=== PATIENT | female | born 1960 | race Caucasian/White ===

== ENCOUNTER 2024-04-08 05:18 | Inpatient (IN) | payer OTHER ==
[~2024-04-08] VITALS: Ht 157.5 cm; Wt 63.0 kg
[2024-04-08] VITALS (12 sets, daily range): BP systolic 97–129; BP diastolic 57–87; TEMP 97.1–98.7; O2SAT 93–99
[2024-04-08] MEDS ORDERED: SEVOFLURANE 250 ML BOTTLE IH ONE (06:06)
[2024-04-08] MEDS ORDERED: BUPIVACAINE 0.5 % PF 150 MG/30 ML VIAL ONE (06:07)
[2024-04-08] MEDS ORDERED: POLYMYXIN B SULFATE 500,000 UNITS ONE (06:07)
[2024-04-08] MEDS ORDERED: ANESTHESIA TRAY IN PYXIS 1 EA TRAY MC ONE (06:07)
[2024-04-08] MEDS ORDERED: FENTANYL PF 250MCG/5ML AMPUL ONE (06:26)
[2024-04-08] MEDS ORDERED: ROCURONIUM BROMIDE 50 MG/5 ML ONE (06:26)
[2024-04-08] MEDS ORDERED: ALBUTEROL SULFATE 8 GM HFA.AER.AD ONE (06:29)
[2024-04-08] MEDS ORDERED: oxyCODONE IR immediate release 5 MG TABLET PO PRN (07:00)
[2024-04-08] MEDS ORDERED: TRANEXAMIC ACID 3,000 MG in SODIUM CHLORIDE IRRIG SOLUTION 70 ML IR ONE (07:00)
[2024-04-08] MEDS ORDERED: TRANEXAMIC ACID 1,000 MG/10 ML VIAL ONE (08:03)
[2024-04-08] MEDS ORDERED: ROPIVACAINE HCL 0.5% 5 MG/ML 30ML VIAL ONE (08:28)
[2024-04-08] MEDS ORDERED: MEPERIDINE25 MG SYR 25 MG/ML VIAL ONE ×2 (09:09→10:07)
[2024-04-08] MEDS ORDERED: FENTANYL PF 100MCG/2ML AMPUL ONE (09:12)
[2024-04-08] MEDS ORDERED: DOCUSATE SODIUM 250 MG CAPSULE PO PRN (10:00)
[2024-04-08] MEDS ORDERED: BISACODYL SUPP (10 MG) 10 MG/SUPP.RECT SUPP.RECT RC PRN (10:00)
[2024-04-08] MEDS ORDERED: SENNOSIDES 8.6 MG TABLET PO PRN (10:00)
[2024-04-08] MEDS ORDERED: ONDANSETRON HCL/PF 4 MG/2 ML VIAL IVP PRN (10:00)
[2024-04-08] MEDS: oxyCODONE IR immediate release 5 MG TABLET PO PRN (11:03)
[2024-04-08] MEDS: IV D5/0.45 NACL 1,000 ML IV PRN (11:03)
[2024-04-08] MEDS: HYDROMORPHONE INJ 2 MG/ML DISP.SYRIN IV PRN (13:40)
[2024-04-08] MEDS ORDERED: CLON1TAB PO (13:49)
[2024-04-08] MEDS ORDERED: MONT10TA22 PO (13:49)
[2024-04-08] MEDS ORDERED: LEVO125T PO (13:49)
[2024-04-08] MEDS ORDERED: CITA40TA22 PO (13:49)
[2024-04-08] MEDS ORDERED: AMLO5TAB4 PO (13:49)
[2024-04-08] MEDS ORDERED: ATOR40TA PO (13:49)
[2024-04-08] MEDS ORDERED: ALBU18HF2 IH (13:49)
[2024-04-08] MEDS: ANCEF 1 GM/50 ML D5W IV SCH (15:07)
[2024-04-08] MEDS ORDERED: ALBUTEROL SULFATE 8 GM HFA.AER.AD IH PRN (17:00)
[2024-04-08] MEDS: LEVOTHYROXINE SODIUM 125 MCG TABLET PO SCH (17:00)
[2024-04-08] MEDS: clonazePAM 1 MG TABLET PO SCH (21:59)
[2024-04-08] MEDS: ATORVASTATIN 40 MG TABLET PO SCH (21:59)
[2024-04-08] MEDS: CELEXA 20 MG PO SCH (21:59)
[2024-04-08] MEDS: ALBUTEROL FS 2.5 MG/3 ML VIAL.NEB NEB PRN (23:11)
[2024-04-09] MEDS: HYDROMORPHONE INJ 2 MG/ML DISP.SYRIN IV PRN (02:18)
[2024-04-09] MEDS ORDERED: MENTHOL/CETYLPYRD (CEPACOL) 1 LOZ LOZENGE PO PRN (06:00)
[2024-04-09] MEDS ORDERED: MAGNESIUM HYDROXIDE 30 ML UDC PO PRN (06:00)
[2024-04-09] MEDS ORDERED: diphenhydrAMINE HCL 25 MG CAPSULE PO PRN (06:00)
[2024-04-09] MEDS ORDERED: MAG HYDROX/AL HYDROX/SIMETH 30 ML UDC PO PRN (06:00)
[2024-04-09] MEDS: MAG HYDROX/AL HYDROX/SIMETH 30 ML UDC PO ONE (06:23)
[2024-04-09] MEDS: PANTOPRAZOLE 40 MG TABLET.DR PO SCH (06:23)
[2024-04-09] MEDS: ACETAMINOPHEN 325 MG TABLET PO PRN (07:38)
[2024-04-09] MEDS: MONTELUKAST SODIUM (10MG) 10 MG TABLET PO SCH (08:07)
[2024-04-09] MEDS: DOCUSATE SODIUM 100 MG CAPSULE PO SCH (08:07)
[2024-04-09] MEDS: AMLODIPINE BESYLATE 5 MG TABLET PO SCH (08:08)
[2024-04-09] MEDS: ASPIRIN 325 MG TABLET PO SCH (08:09)
[2024-04-09 08:23] VITALS: BP 124/72; TEMP 99.8; O2SAT 96
[2024-04-09 08:26] VITALS: O2SAT 96
[2024-04-09 08:37] VITALS: O2SAT 98
[2024-04-09 11:12] VITALS: O2SAT 95
[2024-04-09 11:24] VITALS: O2SAT 97
== END 2024-04-09 15:35 | disposition home health service (06) | DRG 470 ==
LOC: DS 05:18 → MED 10:47
PROVIDERS: ADMIT Internal Medicine; ATTEND Internal Medicine
PROC: 0SRD0J9 Replacement of Left Knee Joint with Synthetic Substitute, Cemented, Open Approach (ICD-10-PCS; principal; 2024-04-08)
DX: M17.12 Unilateral primary osteoarthritis, left knee (principal); I10 Essential (primary) hypertension; E03.9 Hypothyroidism, unspecified; E78.5 Hyperlipidemia, unspecified; F32.A Depression, unspecified; F41.9 Anxiety disorder, unspecified; J45.909 Unspecified asthma, uncomplicated; K21.9 Gastro-esophageal reflux disease without esophagitis; Z79.899 Other long term (current) drug therapy
CPT/HCPCS: 36415; 86850-TC; 87081-TC; 94760-TC; 94799-TC; 97116-TC; 97530-TC; 97760-TC; A4217; A4223; G0378; J0690; J1170; J1885; J2175; J2704; J2795; J3010; J3490; J7050; J7060